=== PATIENT | male | born 1950 | race Caucasian/White ===

== ENCOUNTER 2022-08-25 09:20 | Day surgery (SDC) | payer OTHER, MEDICARE ==
[2022-08-25] MEDS ORDERED: Ringers Lactate 1,000 ML IV ONE (09:55)
--- NOTE | 2022-08-25 10:01 | RAD REPORT ---
EXAM DESCRIPTION: [facility] (2 Views)08/25/2022 9:45 am CLINICAL HISTORY: PRE-OP. Hypertension COMPARISON: No comparisons TECHNIQUE: PA and lateral views of the chest. FINDINGS: The lungs are clear. No pneumothorax or effusion. The cardiomediastinal contours are unrem arkable. IMPRESSION: No acute cardiopulmonary process.
[2022-08-25 10:41] LABS: Potassium 4.1 mEq/L (3.5-5.1)
[2022-08-25 10:58] LABS: Absolute Lymphocytes (CBC) 1.4 K/uL (0.7-4.9); Hematocrit 42.6 % (39.6-49.0); Lymphocytes % 36.9 % (15.3-44.8); MCV 99.1 fL (80-100); MPV 7.6 fL (7.6-11.3)
[2022-08-25] MEDS ORDERED: propofoL 200 MG/20 ML VIAL IV ONE (11:57)
[2022-08-25] MEDS ORDERED: dexAMETHasone 4 MG/ML VIAL ONE (11:58)
[2022-08-25] MEDS ORDERED: KETOROLAC 30 MG/ML INJ ONE (11:58)
[2022-08-25] MEDS ORDERED: LIDOCAINE 2% MPF 5 ML VIAL ONE (11:58)
[2022-08-25] MEDS ORDERED: ONDANSETRON 4 MG/2 ML VIAL ONE (11:58)
[2022-08-25] MEDS ORDERED: MIDAZOLAM HCL 2 MG/2 ML INJ ONE (12:00)
[2022-08-25] MEDS ORDERED: FENTANYL CITR 100 MCG/2 ML ONE (12:00)
[2022-08-25] MEDS: CEFAZOLIN SODIUM 1 GM/VIAL ONE ×2 (12:17→12:31)
[2022-08-25] MEDS ORDERED: CEFAZOLIN SODIUM 1 GM/VIAL ONE (12:39)
[2022-08-25] MEDS ORDERED: NS 0.9% VIAL 10 ML ONE ×2 (12:40→12:43)
[2022-08-25] MEDS ORDERED: Phenylephrine HCl 10 MG/ML 1 ML VIAL ONE (12:43)
--- NOTE | 2022-08-25 13:13 | P.BOP ---
Preoperative diagnosis: infected right upper back subQ mass Postoperative diagnosis: same Primary procedure: Excisional biopsy infected right upper back subQ mass 4x4cm Estimated blood loss: <10cc Specimen: mass Findings: mass Anesthesia: General Complications: None Transferred to: Recovery Room Condition: Good
[2022-08-25 13:24] VITALS: TEMP 98
[2022-08-25 13:59] VITALS: BP 152/77; O2SAT 98
--- NOTE | 2022-08-25 15:22 | EKG ---
Test Date: 2022-08-25 Test Time: 09:48:48 Investor Relations Specialist: EAGLE MEASUREMENT RESULTS: Intervals: Rate: 65 MD: 182 QRSD: 100 QT: 412 QTc: 428 [place]: P: 63 MD: 182 QRS: 3 T: 49 INTERPRETIVE STATEMENTS: Normal sinus rhythm Normal ECG No previous ECG available for comparison Electronically Signed On 08-25-22 15:21:39 CDT by Quentin Hamm
--- NOTE | 2022-08-26 10:45 | OP ---
Date of Procedure: 08/25/2022 Surgeon: Alexander Conrad MD Preoperative Diagnosis: Infected right upper back subcutaneous mass. Postoperative Diagnosis: Infected right upper back subcutaneous mass. Procedure: Excisional biopsy of infected right upper back subcutaneous mass, 4 x 4 cm. Estimated Blood Loss: Less than 10 mL. Specimen: Mass. Finding: Subcutaneous mass deep down to fascia of the muscle, although does not penetrate the muscle . Anesthesia: General plus local. Complications: None. Indication: This is the case of a 71-year-old patient, who comes to us with a mass in the back. We gave him some antibiotics, trying to cool it down the best we can. The mass still present with eryth johanny. We controlled some of the cellulitis around the area. He wants that excised and does not impro ve anymore, so we offered him an excisional biopsy of infected mass. He understands the benefits, al ternatives and risks, which include, but not limited to infection, bleeding, damage to adjacent struc tures, anesthesia complication, nonhealing wound, GA, and even . He also understands this may n ot relieve any symptoms. He might need more than one surgical intervention, he may need wound care. Regarding the wound care since the area was affected before, he preferred to have this closed. Ther e are some limitations on it and we have bacteria or kem pus that may have to leave it open and sven n if we do not have kem pus, we are going to clean the area and we approximated this, we might have to in the next few days if we do not see clinically improved, just leave the area open to heal by se condary intention. He preferred that route. The patient understands the importance of being complia nt with treatment. He understood. The area of concern was marked by me and the patient in the [facility]. Procedure In Detail: The patient was brought to the operating room, placed in supine position. Anes thesia was done complication. The patient was placed in lateral decubitus position with proper prote ction. After that, I prepped the back area in the usual sterile fashion. A wedge incision was made on the skin after time-out and after injecting local anesthetic. This was carried down all the way d own to deep subcutaneous tissue. This area came right near the fascia of the muscle, but does not pe netrate the muscle. The area was irrigated. Hemostasis was obtained. Muscle was excised in order f or me to approximate this together. I have to close this in layers and the layered closure was used with the deep layers with 0 chromic, mid layers with 0 chromic and more superficial layers with 3-0 c hromic and the skin with nylon. Hemostasis and irrigation were done before closure. The patient navjot erated the procedure well. The patient was sent to recovery in stable condition. JANET/NITESH Voice ID: [id number] Report ID: [id number]
--- NOTE | 2022-08-26 10:45 | DS ---
Date of Discharge: 08/25/2022 Diagnosis: Infected right upper back subcutaneous mass. Procedure: Excisional biopsy of infected right upper back subcutaneous mass. Disposition: Home. Activity: As tolerated. No heavy lifting. Plan: Follow up in my office in 1 week. Call for appointment at [phone]. Keep area dry for 48 chris rs, then after that may shower. Put some Neosporin over the incision and a Band-Aid. JANET/NITESH Voice ID: [id number] Report ID: [id number]
== END 2022-08-25 14:37 | disposition home or self-care (01) ==
LOC: OR 09:20
PROVIDERS: ATTEND Surgery
PROC: 0JB70ZZ Excision of Back Subcutaneous Tissue and Fascia, Open Approach (ICD-10-PCS; principal; 2022-08-25 11:30)
DX: L72.0 Epidermal cyst (principal); L08.9 Local infection of the skin and subcutaneous tissue, unspecified
CPT/HCPCS: 93005; 85025; 80048; 36415; 88304; 71046; 11404; A4216 ×2; J2704; J1100; J2370; J2001; J2250; J3010; J2405; J7120; J0690

== ENCOUNTER 2022-09-30 08:09 | Day surgery (SDC) | payer OTHER, MEDICARE ==
[2022-09-23 15:58] LABS: Absolute Lymphocytes (CBC) 1.7 K/uL (0.7-4.9); Hematocrit 41.6 % (39.6-49.0); Lymphocytes % 36.2 % (15.3-44.8); MCV 99.1 fL (80-100); RBC Red Blood Cell Count 4.19 M/uL (4.33-5.43)
[2022-09-23 16:17] LABS: Potassium 4.1 mEq/L (3.5-5.1)
[2022-09-23 16:23] LABS: Protime INR 0.96
[2022-09-30] MEDS ORDERED: Ringers Lactate 1,000 ML IV ONE (08:38)
[2022-09-30] MEDS ORDERED: propofoL 200 MG/20 ML VIAL IV ONE (10:00)
[2022-09-30] MEDS ORDERED: ONDANSETRON 4 MG/2 ML VIAL ONE (10:01)
[2022-09-30] MEDS ORDERED: FENTANYL CITR 100 MCG/2 ML ONE (10:01)
[2022-09-30] MEDS ORDERED: LIDOCAINE 1% MPF 5 ML VIAL ONE (10:01)
[2022-09-30] MEDS: CEFAZOLIN SODIUM 2 GM/VIAL ONE ×2 (10:02→10:08)
[2022-09-30] MEDS ORDERED: dexAMETHasone 10 MG/ML VIAL ONE (10:39)
[2022-09-30] MEDS ORDERED: NS 0.9% VIAL 10 ML ONE (10:44)
[2022-09-30] MEDS ORDERED: GLYCOPYRROLATE 0.2 MG/ML SYR ONE (10:51)
[2022-09-30] MEDS ORDERED: CODEINE 30MG/APAP 300MG TAB PO PRN (11:01)
[2022-09-30 11:27] VITALS: O2SAT 97
[2022-09-30] MEDS: PHENAZOPYRIDINE 100MG TAB PO ONE ×2 (12:00→12:03)
[2022-09-30] MEDS ORDERED: PHENAZOPYRIDINE 100MG TAB PO ONE (12:09)
[2022-09-30 12:44] VITALS: BP 120/65; TEMP 97.7
--- NOTE | 2022-09-30 15:13 | OP ---
Surgeon: ASHLEIGH MUNGUIA Preoperative Diagnosis: Benign prostatic hypertrophy with lower urinary tract obstruction and sympto ms. Postoperative Diagnosis: Benign prostatic hypertrophy with lower urinary tract obstruction and sympt oms. Principal Procedure: Prostatic urethral lift/UroLift with 8 implants placed successfully. Indication For Procedure: Mr. Tate presented to the Urology Clinic with obstructive urinary symptom s refractory to attempts at medical therapy. He underwent evaluation revealing significant lateral l obar hypertrophy with elevation of median bar with a small median lobe minimally intravesically proje cting. He was counseled on options for management to include resective/ablative procedures like the bipolar TURP or holmium laser ablation or enucleation of the prostate, relative to the UroLift. Afte r review of the procedural information, brochures and videos and our discussion, he elected to procee d with the UroLift. Procedure In Detail: The patient was consented in the preoperative holding area before being transfe rred to the operative suite where general anesthesia was induced. He was given Ancef 2 g IV antimicr obial prophylaxis. He was placed in the lithotomy position, padded and secured to the table appropri ately. His genitalia were prepped with Hibiclens and he was draped in standard fashion. The case wa s begun using the 20-Cypriot UroLift sheath and a visual obturator to traverse the urethra and into th e bladder with ease. As had previously been noted, there was significant elevation of a median bar w ith a median lobe that was minimally intravesically projecting and significant lateral lobar hypertro phy and an approximately 3.5-4 cm prostatic urethra. As a result, I began by switching the visual ob turator to a UroLift delivery implant device, and targeted the first implant in the left lateral wall about 1.5-2 cm distal to the bladder neck at the 1 o'clock position. The scope was angled 10 degree s touching the tissue and the first pull of the trigger did deploy the needle through the substance o f the prostate. The scope was angled laterally an additional 10 degrees to ensure the needle deliver y through to the capsular surface of the prostate, and a second pull of the trigger did deploy the ca psular tab. A third pull of the trigger then retracted the needle partially and began to tension the suture, and then I advanced the scope back toward the midline and toward the bladder 1-3 mm until th e white of the monofilament was centered in the delivery bay. At this point, I pulled the trigger fo urth time, which did tailor the suture and apply the urethral end piece, which did nicely invaginate into the tissue within the left lateral wall at the bladder neck opening the channel on that side. I then switched that UroLift delivery device for a new implant and performed similar targeting this ti me in the right lateral wall of the prostate at the bladder neck about 1.5-2 cm distal. At the 11 o' clock position this time, an additional implant was successfully placed opening the bladder neck nice ly and causing the median bar/lobe to sit down a bit within the prostatic urethra at the bladder neck . I then proceeded to the verumontanum where an additional implant was placed on each side at the 1 o'clock and the 11 o'clock position respectively at the apex of the prostate at the verumontanum. I then surveyed the channel created and noted while there was nice lateralization of the tissue at the apex and at the bladder neck, within the mid zone of the prostate, there was still some lateral lobar intrusion, and there was slight anterior overhang emanating mostly from the left side. As a result, I placed an additional implant at this time distal to the bladder neck implant on the left and in a slightly stack fashion elevating the anterior overhanging tissue on that side. Re-survey of the boyd alanis using a visual obturator demonstrated nice opening of the bladder neck there. There was persiste nt lateral lobar hypertrophy in the intervening tissue between the apex and the bladder neck; so an a dditional 2 implants were required and placed within that tissue in the left and the right sides of t he prostate nicely creating an anterior channel. Upon visual obturator survey of that channel create d, while there was an opening at the bladder neck, the median lobar tissue was still somewhat promine nt and intruding inferiorly into that bladder neck opening causing an elevation of the median bar. A s a result, I utilized a spent device situated deep within the lateral sulcus on the right side of th e median lobe to see if I could indeed pin the lobe laterally to the left side and more efficaciously open the channel. I was able to demonstrate this could be done with a spent device; so I utilized a n eighth and final implant in that median lobe right lateral sulcus and was able to nicely pin the lo be over to the left side generating a beautiful continuous anterior channel with the implant nicely s ituated, embedded and invaginated within the median lobar tissue away from exposure to the urine of t he intravesical space. So, on final survey of the channel created, beautiful continues anterior boyd alanis open from the verumontanum through to the bladder neck was present, so I had retrograde filled hi s bladder before removing the scope and placing a 20-Cypriot silicone Wade catheter with ease. The p gloria was then taken out of the lithotomy position, awakened from general anesthesia, transferred to a stretcher, and then transferred to the recovery room in good condition. Complications: None. Discharge Disposition: He will be standard postoperative UroLift pathway with followup to occur in a bout 1 month's time. SELENA/NITESH Voice ID: [id number] Report ID: [id number]
== END 2022-09-30 12:20 | disposition home or self-care (01) ==
LOC: OR 08:09
PROVIDERS: ATTEND Urology
PROC: 0T7D8DZ Dilation of Urethra with Intraluminal Device, Via Natural or Artificial Opening Endoscopic (ICD-10-PCS; principal; 2022-09-30 09:30)
DX: N40.1 Benign prostatic hyperplasia with lower urinary tract symptoms (principal); N13.8 Other obstructive and reflux uropathy
CPT/HCPCS: 87088; 85025; 87086; 80048; 36415; 85610; 85730; 52441; 52442 ×7; A4216; J2704; J2001; J3010; J1100; J2405; J7120

== ENCOUNTER 2023-02-17 09:44 | Day surgery (SDC) | payer OTHER, MEDICARE ==
[2023-01-05 12:04] LABS: Protime INR 0.95
[2023-01-05 12:08] LABS: Absolute Lymphocytes (CBC) 1.8 K/uL (0.7-4.9); Hematocrit 42.8 % (39.6-49.0); Lymphocytes % 35.5 % (15.3-44.8); MCV 98.1 fL (80-100); MPV 7.5 fL (7.6-11.3); Platelets 194 thou/uL (152-406); RBC Red Blood Cell Count 4.37 M/uL (4.33-5.43)
[2023-01-05 12:15] LABS: Potassium 4.4 mEq/L (3.5-5.1)
[2023-01-05 12:39] LABS: Blood Morphology Comment NOT SEEN (NOT SEEN); Platelet Estimate ADEQ; White Blood Cell Scan OK (OK)
[2023-02-05 16:00] LABS: Absolute Lymphocytes (CBC) 1.7 K/uL (0.7-4.9); Hematocrit 41.8 % (39.6-49.0); Lymphocytes % 30.1 % (15.3-44.8); MCV 98.7 fL (80-100); MPV 7.6 fL (7.6-11.3); Platelets 194 thou/uL (152-406); RBC Red Blood Cell Count 4.23 M/uL (4.33-5.43)
[2023-02-05 16:03] LABS: Protime INR 0.95
[2023-02-05 16:17] LABS: Potassium 4.3 mEq/L (3.5-5.1)
[2023-02-17] MEDS ORDERED: Ringers Lactate 1,000 ML IV ONE (10:19)
[2023-02-17] MEDS ORDERED: LIDOCAINE 1% MPF 5 ML VIAL ONE (10:49)
[2023-02-17] MEDS ORDERED: ONDANSETRON 4 MG/2 ML VIAL ONE (10:49)
[2023-02-17] MEDS ORDERED: FENTANYL CITR 100 MCG/2 ML ONE (10:49)
[2023-02-17] MEDS ORDERED: CEFAZOLIN SODIUM 2 GM/VIAL IVPB ONE (11:24)
[2023-02-17] MEDS ORDERED: propofoL 200 MG/20 ML VIAL IV ONE (11:48)
[2023-02-17] MEDS ORDERED: dexAMETHasone 10 MG/ML VIAL ONE (11:53)
[2023-02-17] MEDS ORDERED: EPHEDRINE SULF 50 MG/ML VIAL ONE (12:05)
[2023-02-17] MEDS ORDERED: Mastisol Adhesive Liq ONE (12:15)
--- NOTE | 2023-02-17 12:35 | RAD REPORT ---
EXAM DESCRIPTION: RAD - Urethrocystogrphy Retrograde - 02/17/2023 12:24 pm CLINICAL HISTORY: RIGHT SIDED STENT PLACEMENT COMPARISON: Stone Protocol dated 11/20/2022 FINDINGS/IMPRESSION: Fourteen intraoperative fluoroscopic images showing cannulation of the right ur eter, injection of contrast and placement of a right ureteral stent. Fluoro time: 21 seconds Dose: 13.2 mGy
[2023-02-17] MEDS ORDERED: PHENAZOPYRIDINE 100MG TAB PO ONE (13:15)
[2023-02-17 14:22] VITALS: TEMP 97; O2SAT 97
[2023-02-17 14:24] VITALS: BP 150/80
--- NOTE | 2023-02-17 23:06 | OP ---
Surgeon: ASHLEIGH MUNGUIA Preoperative Diagnoses: 1.Right flank pain, chronic. 2.Right-sided hydronephrosis. 3.Sign of functional right renal obstruction. Postoperative Diagnoses: 1.Right flank pain, chronic. 2.Right-sided hydronephrosis. 3.Sign of functional right renal obstruction. Principal Procedures: 1.Cystoscopy. 2.Right retrograde pyelography. 3.Right ureteral stent placement, 7-[place] x 26 cm. Findings: Fekx-jk-hbobbyuv right caliectasis with minimal to no pelviectasis. No specific ureteral obstruction noted with mild slight tortuosity/deviation observed proximally without specific UPJ obst ruction observed. Indication For Procedure: He presented to the Urology Clinic and was initially managed for obstructi ve lower urinary symptoms due to BPH via the UroLift. He had significant improvement in his urinary symptoms, but he expressed some concerns about right flank pain. Upon evaluation with ultrasound, hy dronephrosis was detected and followup CT imaging did not demonstrate the presence of any ureteral ob struction or stone, but it did confirm the hydronephrosis. As a result, the patient was recommended for MAG3 Lasix renography to assess for functional obstruction, and once confirmed, he was recommende d for operative intervention given the potential decline in his renal function that was observed and his chronic flank pain that might be improved. Procedure In Detail: The patient was consented in the preoperative holding area before being transfe rred to the operative suite where general anesthesia was induced. He was given Ancef 2 g IV antimicr obial prophylaxis, and pneumo boots were provided for DVT prophylaxis. He was placed in the lithotom y position, padded and secured to the table appropriately. His genitalia were prepped with Hibiclens and he was draped in standard fashion. The case was begun using the 22-[place] rigid cystoscope to t raverse the urethra and enter the bladder with ease. There was mild meatal stenosis, which was able to be gently dilated using the obturator of the cystoscope. I surveyed the prostatic urethral channe l created by the UroLift and noted no significant lateral lobar intrusion with UroLift implant visibl y retracting the tissue laterally, but the presence of an elevated median bar that was persistent wit hout lateral sulcus amenable to UroLift treatment of a median lobe. Upon entry into the bladder, the bladder was surveyed in its entirety, and there were no mucosal lesions, foreign bodies, or stones. The bladder was moderately trabeculated with some small cellule formation posteriorly. The right ur eteral orifice was visible beneath an elevated median bar with slight intravesical projection of that median bar/lobe. With the bladder distended, I was able to visualize the right ureteral orifice and cannulated using the tip of a 5-[place] ureteral access catheter. Right retrograde pyelography: Using a 70:30 mixture of Omnipaque and saline, contrast was injected v ia the lumen of the 5-[place] ureteral access catheter and did propagate up the distal into the mid an d proximal ureter before entering the renal pelvis and calices. No significant ureteral stenosis was observed, and while there was mild slight ureteral deviation proximally at the UPJ, possible slight tortuosity, no significant sign of obvious UPJ obstruction was observed. No other ureteral filling d efect was observed. The contrast then entered the renal pelvis and filled a portion of the pelvicali ceal system with evidence of some moderate blunting of the calices without significant pelviectasis. Since some of the calyces did not immediately fill, I then injected a second bolus of contrast to co mpletely define all of the calices, and there was evidence of pyelocalyceal reflux of the contrast. As a result, I passed a Sensor wire via the 5-[place] ureteral access catheter coiling it within the u pper pole calyx of the kidney. Over the Sensor wire, which according to the fluoroscopic imagery was indeed within the lumen of the ureter and the calyx of the kidney, I then passed a 7-[place] x 26 cm double-J ureteral stent. The st ent tip did emanate all the way into the upper pole calyx extending down a narrow infundibulum before passing the pelvis down the ureter, where a coil was formed within the patient's bladder. The contr ast did rapidly drain via the stent with evidence of illumination of contrast from the upper pole and renal pelvis fluoroscopically while the lower pole calyx, which was far away from the stent had a de gree of retained contrast. As a result, I decompressed his bladder of fluid and urine and then remov ed the cystoscope. He was then awakened from general anesthesia after being taken out of the lithoto my position, transferred to a stretcher, and then transferred to the recovery room in good condition. Complications: None. Discharge Disposition: Of note, there was some resistance/difficulty to ease of passage of the 7-[facility] stent, which could have been because of the larger size of the stent versus potentially a subtle degree of ureteral stenosis not identified on the retrograde study. Since no specific UPJ obstructio n was observed, we will allow him the next 3 to 5 days to discern whether his right flank pain has in deed improved associated with the stent. If so, we will have to discuss efforts at additional manage ment that may include ureteral dilation and stenting. If no significant improvement in his pain, the stent was left tethered to the head of the penis via a string, and we would endeavor to remove it on Thursday or Thursday of next week. I did discharge him with a 7-day prescription for Keflex to cover h im for the entirety of the time the stent with a tether is in place. If significant improvement in p ain, we will follow up electively within the next 2 to 3 months to discuss potential next steps. SELENA/NITESH Voice ID: [id number] Report ID: [id number]
== END 2023-02-17 14:15 | disposition home or self-care (01) ==
LOC: OR 09:44
PROVIDERS: ATTEND Urology
PROC: 0T768DZ Dilation of Right Ureter with Intraluminal Device, Via Natural or Artificial Opening Endoscopic (ICD-10-PCS; principal; 2023-02-17 11:15)
DX: N13.2 Hydronephrosis with renal and ureteral calculous obstruction (principal); N20.0 Calculus of kidney; R10.9 Unspecified abdominal pain
CPT/HCPCS: 52332; 87088 ×2; 85025 ×2; 87086 ×2; 80048 ×2; 36415 ×2; 85610 ×2; 74450; 51610; J2704; J2001; J3010; J1100; J2405; J7120